=== PATIENT | male | born 1975 | race Caucasian/White ===

== ENCOUNTER 2018-03-05 23:22 | Emergency (ER) | payer SELFPAY ==
[2018-03-06] MEDS ORDERED: KETOROLAC TROMETHAMINE 60 MG/2 ML SDV IM ONE (00:23)
[2018-03-06] MEDS ORDERED: COLCHICINE 0.6 MG TABLET PO ONE (00:23)
--- NOTE | 2018-03-06 00:28 | ER Document Report ---
ED Extremity Problem, Lower - General Chief Complaint: R big toe pain/ R cheek pain Stated Complaint: RIGHT BIG TOE AND RIGHT CHEEK HURTING Time Seen by Provider: 03/06/18 00:23 Mode of Arrival: Ambulatory Information source: Patient Notes: History of present illness-42 years old male woke up 7 days ago with sharp pain over the right big toe, it progressively increased in intensity and become completely erythematous. prior to that he was eating a lot of pork. Denies any previous history of gout. Denies any injury. REVIEW OF SYSTEMS: CONSTITUTIONAL : Denies fever, chills, or sweats. Denies recent illness. EENT: Denies eye, ear, throat, or mouth pain or symptoms. Denies nasal or sinus congestion or discharge. Denies throat, tongue, or mouth swelling or difficulty swallowing. CARDIOVASCULAR: Denies chest pain. Denies palpitations or racing or irregular heart beat. Denies ankle edema. RESPIRATORY: Denies cough, cold, or chest congestion. Denies shortness of breath, difficulty breathing, or wheezing. GASTROINTESTINAL: Denies abdominal pain or distention. Denies nausea, vomiting , or diarrhea. Denies blood in vomitus, stools, or per rectum. Denies black, tarry stools. Denies constipation. GENITOURINARY: Denies difficulty urinating, painful urination, burning, frequency, blood in urine, or discharge. MUSCULOSKELETAL: Denies back or neck pain or stiffness. Denies joint pain or swelling. SKIN: Denies rash, lesions or sores. HEMATOLOGIC : Denies easy bruising or bleeding. LYMPHATIC: Denies swollen, enlarged glands. NEUROLOGICAL: Denies confusion or altered mental status. Denies passing out or loss of consciousness. Denies dizziness or lightheadedness. Denies headache. Denies weakness or paralysis or loss of use of either side. Denies problems with gait or speech. Denies sensory loss, numbness, or tingling. Denies seizures. PSYCHIATRIC: Denies anxiety or stress. Denies depression, suicidal ideation, or homicidal ideation. ALL OTHER SYSTEMS REVIEWED AND NEGATIVE. Dictation was performed using [employer] recognition software PHYSICAL EXAMINATION: GENERAL: Well-appearing, well-nourished and in no acute distress. HEAD: Atraumatic, normocephalic. EYES: Pupils equal round and reactive to light, extraocular movements intact, sclera anicteric, conjunctiva are normal. ENT: Nares patent, oropharynx clear without exudates. Moist mucous membranes. NECK: Normal range of motion, supple without lymphadenopathy LUNGS: Breath sounds clear to auscultation bilaterally and equal. No wheezes rales or rhonchi. HEART: Regular rate and rhythm without murmurs ABDOMEN: Soft, nontender, nondistended abdomen. No guarding, no rebound. No masses appreciated. Musculoskeletal: Right big toe at the metacarpophalangeal joint shows swelling erythema is warm and tender to touch. NEUROLOGICAL: Cranial nerves grossly intact. Normal speech, normal gait. Normal sensory, motor exams PSYCH: Normal mood, normal affect. SKIN: Warm, Dry, normal turgor, no rashes or lesions noted. TRAVEL OUTSIDE OF THE [place] IN LAST 30 DAYS: No - HPI Patient complains to provider of: Pain, Swelling Location: Great Toe Occurred: Last week Where: Home Onset/Duration: Sudden Quality of pain: Sharp Severity: Moderate Pain Level: 3 Context: denies: Barefoot, Burn, Crush, Direct blow, Fell, Laceration, Prolonged pressure on ext, Recent immobilization, Recent surgery, Recent travel , Stubbed, Twisted, Wearing shoes, Other Associated symptoms: denies: Chest pain, Chills, Dizzy, Fainting, Fever, [place] a crack, [place] a pop, Hurts to breath, Painful ambulation, Rapid heart rate, Seizure, Short of breath, Sweaty, Unable to bear weight, Weak, Other Past Medical History - Social History Smoking Status: Current Every Day Smoker Chew tobacco use (# tins/day): No Smoking Education Provided: No Frequency of alcohol use: Rare Drug Abuse: None Lives with: Family Family History: Reviewed & Not Pertinent Patient has suicidal ideation: No Patient has homicidal ideation: No Renal/ Medical History: Denies: Hx Peritoneal Dialysis Review of Systems - Review of Systems Notes: As per history of complain Course - Re-evaluation Re-evalutation: 03/06/18 01:59 Patient patient feeling much better. All lab reports have been reviewed - Laboratory Result Diagrams: 03/06/18 01:00 03/06/18 01:00 Laboratory results interpreted by me: 03/06/18 03/06/18 01:00 01:00 Hgb 13.3 L RDW 14.4 H Chloride 108 H Glucose 114 H Total Bilirubin < 0.1 L Total Protein 5.7 L Albumin 3.4 L Discharge - Discharge Clinical Impression: Gouty arthritis of right great toe Condition: Fair Disposition: HOME, SELF-CARE Instructions: Gout Diet ([facility]), Gout ([facility]) Prescriptions: Colchicine [Colchicine 0.6 mg Tablet] 0.6 mg PO DAILY #30 tablet Indomethacin [Indocin 50 mg Capsule] 50 mg PO TID PRN #30 capsule PRN Reason:
[2018-03-06 01:16] LABS: ABSOLUTE EOSINOPHILS # (AUTO) 0.3 10^3/uL (0.0-0.6); ABSOLUTE LYMPHOCYTES (AUTO) 2.1 10^3/uL (0.5-4.7); ABSOLUTE MONOCYTES (AUTO) 0.5 10^3/uL (0.1-1.4); ABSOLUTE NEUT (AUTO) 3.4 10^3/uL (1.7-8.2); BASOPHILS % (AUTO) 0.7 % (0-2); EOSINOPHILS % (AUTO) 5.2 % (0-6); HEMATOCRIT 39.3 % (37.9-51.0); HEMOGLOBIN 13.3 g/dL (13.5-17.0); LYMPHOCYTES % (AUTO) 33.5 % (13-45); MEAN CORPUSCULAR HEMOGLOBIN 30.5 pg (27.0-33.4); MEAN CORPUSCULAR HGB CONC 33.8 g/dL (32.0-36.0); MEAN CORPUSCULAR VOLUME 90 fl (80-97); MONOCYTES % (AUTO) 7.9 % (3-13); PLATELET COUNT 234 10^3/uL (150-450); RED BLOOD COUNT 4.36 10^6/uL (4.35-5.55); RED CELL DISTRIBUTION WIDTH 14.4 % (11.5-14.0); SEGMENTED NEUTROPHILS % (AUTO) 52.7 % (42-78); TOTAL CELLS COUNTED % (AUTO) 100 %; WHITE BLOOD COUNT 6.4 10^3/uL (4.0-10.5)
[2018-03-06 01:38] LABS: ALANINE AMINOTRANSFERASE 35 U/L (21-72); ALBUMIN 3.4 g/dL (3.5-5.0); ALKALINE PHOSPHATASE 59 U/L (38-126); ANION GAP 8 (5-19); ASPARTATE AMINO TRANSFERASE 24 U/L (17-59); BLOOD UREA NITROGEN 10 mg/dL (7-20); CALCIUM 9.5 mg/dL (8.4-10.2); CARBON DIOXIDE 25 mmol/L (22-30); CHLORIDE 108 mmol/L (98-107); GLUCOSE 114 mg/dL (75-110); POTASSIUM 4.5 mmol/L (3.6-5.0); SODIUM 141.2 mmol/L (137-145); TOTAL PROTEIN 5.7 g/dL (6.3-8.2); URIC ACID 5.5 mg/dL (3.5-8.5)
[2018-03-06 01:40] LABS: BILIRUBIN,TOTAL < 0.1 mg/dL (0.2-1.3)
[2018-03-06 02:07] VITALS: BP 112/59
== END 2018-03-06 02:12 | disposition home or self-care (01) ==
LOC: ER 23:22
DX: M10.471 Other secondary gout, right ankle and foot (principal); M79.674 Pain in right toe(s)
CPT/HCPCS: 99283; 96372; 36415; 84550; 85025; 80053; J1885

== ENCOUNTER 2018-09-10 00:07 | Emergency (ER) | payer SELFPAY ==
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
[2018-09-10 01:46] LABS: ABSOLUTE BASOPHILS # (AUTO) 0.1 10^3/uL (0.0-0.2); ABSOLUTE EOSINOPHILS # (AUTO) 0.3 10^3/uL (0.0-0.6); ABSOLUTE LYMPHOCYTES (AUTO) 1.8 10^3/uL (0.5-4.7); ABSOLUTE MONOCYTES (AUTO) 0.3 10^3/uL (0.1-1.4); ABSOLUTE NEUT (AUTO) 3.1 10^3/uL (1.7-8.2); BASOPHILS % (AUTO) 1.1 % (0-2); EOSINOPHILS % (AUTO) 6.1 % (0-6); HEMATOCRIT 41.1 % (37.9-51.0); HEMOGLOBIN 13.8 g/dL (13.5-17.0); MEAN CORPUSCULAR HEMOGLOBIN 29.4 pg (27.0-33.4); MEAN CORPUSCULAR HGB CONC 33.6 g/dL (32.0-36.0); MEAN CORPUSCULAR VOLUME 87 fl (80-97); MONOCYTES % (AUTO) 5.1 % (3-13); PLATELET COUNT 335 10^3/uL (150-450); RED CELL DISTRIBUTION WIDTH 18.6 % (11.5-14.0); SEGMENTED NEUTROPHILS % (AUTO) 54.7 % (42-78); TOTAL CELLS COUNTED % (AUTO) 100 %; WHITE BLOOD COUNT 5.6 10^3/uL (4.0-10.5)
[2018-09-10 02:01] LABS: ALANINE AMINOTRANSFERASE 30 U/L (21-72); ALBUMIN 4.3 g/dL (3.5-5.0); ALCOHOL 244 mg/dL (NONE DETECTED); ALKALINE PHOSPHATASE 71 U/L (38-126); ANION GAP 11 (5-19); ASPARTATE AMINO TRANSFERASE 38 U/L (17-59); BILIRUBIN,DIRECT 0.2 mg/dL (0.0-0.4); BILIRUBIN,TOTAL 0.5 mg/dL (0.2-1.3); BLOOD UREA NITROGEN 6 mg/dL (7-20); CARBON DIOXIDE 30 mmol/L (22-30); CHLORIDE 99 mmol/L (98-107); GLUCOSE 81 mg/dL (75-110); POTASSIUM 4.4 mmol/L (3.6-5.0); TOTAL PROTEIN 7.1 g/dL (6.3-8.2)
[2018-09-10 02:06] LABS: URINE AMPHETAMINES SCREEN NEGATIVE; URINE BARBITURATES SCREEN NEGATIVE; URINE BENZODIAZEPINES SCREEN NEGATIVE; URINE COCAINE SCREEN NEGATIVE; URINE MARIJUANA (THC) SCREEN UNCONFIRMED POSITIVE; URINE METHADONE SCREEN NEGATIVE; URINE PHENCYCLIDINE SCREEN NEGATIVE
[2018-09-10 03:01] LABS: APPEARANCE,URINE CLEAR; BILIRUBIN,URINE NEGATIVE (NEGATIVE); COLOR,URINE COLORLESS; GLUCOSE, URINE NEGATIVE (NEGATIVE); KETONES,URINE NEGATIVE (NEGATIVE); LEUKOCYTE ESTERASE,URINE NEGATIVE (NEGATIVE); NITRITE,URINE NEGATIVE (NEGATIVE); PROTEIN,URINE NEGATIVE (NEGATIVE); URINE SPECIFIC GRAVITY 1.004; UROBILINOGEN,URINE NEGATIVE mg/dL (<2.0)
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
== END 2018-09-10 05:00 | disposition home or self-care (01) ==
LOC: ER 00:07
DX: S39.91XA Unspecified injury of abdomen, initial encounter (principal); R10.32 Left lower quadrant pain; Y04.2XXA Assault by strike against or bumped into by another person, initial encounter; R51 Headache; R07.1 Chest pain on breathing; F12.10 Cannabis abuse, uncomplicated; F17.200 Nicotine dependence, unspecified, uncomplicated; Z91.013 Allergy to seafood
CPT/HCPCS: 36415; 70450; 71250; 74177; 80053; 80307; 81001; 85025; 99284

== ENCOUNTER 2018-10-04 23:30 | Emergency (ER) | payer SELFPAY ==
[2018-10-04] MEDS ORDERED: ONDANSETRON HCL INJ/PF 4 MG/2 ML SDV IV ONE (23:46)
[2018-10-04] MEDS ORDERED: DIPH/PERTUSS(ACELL)/TETANUS VAC/PF 0.5 ML SYR (>=10YO) IM ONE (23:47)
[2018-10-04] MEDS ORDERED: LIDOCAINE 1%/EPINEPHRINE INJ 20 ML VIAL INJ ONE (23:47)
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
--- NOTE | 2018-10-05 00:57 | RADIOLOGY REPORT (SQ) ---
EXAM DESCRIPTION: XR FOOT 3 OR MORE VIEWS, XR ANKLE 3 OR MORE VIEWS, XR KNEE 4 OR MORE VIEWS COMPLETED DATE/TME: 10/04/2018 23:46 CLINICAL HISTORY: 42 years, Male, fall, pain COMPARISON: None. NUMBER OF VIEWS: Three views of the left ankle and three views of the left foot four views of the right knee TECHNIQUE: Views of the left ankle and three views of the left foot, four views of the right knee LIMITATIONS: None. FINDINGS: There is no acute fracture or dislocation in either the foot or ankle. The ankle mortise is intact. No large soft tissue swelling. No radiopaque foreign body. There is no acute fracture or dislocation involving the knee. No large soft tissue swelling. There is mild joint space narrowing with subchondral sclerosis involving the medial and lateral compartments. IMPRESSION: No acute fracture or dislocation involving the left ankle or foot. No acute fracture or dislocation involving the right knee 2010 [employer]- All Rights Reserved
[2018-10-05] MEDS ORDERED: METOCLOPRAMIDE HCL INJ/PF 10 MG/2 ML SDV IV ONE (01:12)
[2018-10-05] MEDS ORDERED: KETOROLAC TROMETHAMINE INJ/PF 30 MG/1 ML SDV IV ONE (01:12)
[2018-10-05 01:38] VITALS: BP 119/76
== END 2018-10-05 02:04 | disposition home or self-care (01) ==
LOC: ER 23:30
DX: S01.01XA Laceration without foreign body of scalp, initial encounter (principal); M79.672 Pain in left foot; M25.572 Pain in left ankle and joints of left foot; M25.561 Pain in right knee; W19.XXXA Unspecified fall, initial encounter; F10.129 Alcohol abuse with intoxication, unspecified
CPT/HCPCS: 99284; 90471; 96374; 82962; 73610; 73630; 73564; 70450; 72125; 90715; 12002; J3490; J1885; J2765; J2405

== ENCOUNTER 2018-10-07 19:46 | Emergency (ER) | payer SELFPAY ==
[2018-10-07] MEDS ORDERED: DIPHENHYDRAMINE HCL 25 MG CAPSULE PO ONE (20:07)
[2018-10-07] MEDS ORDERED: PROCHLORPERAZINE MALEATE 10 MG TABLET PO ONE (20:07)
[2018-10-07] MEDS ORDERED: ACETAMINOPHEN 325 MG TABLET PO ONE (20:08)
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
--- NOTE | 2018-10-07 21:06 | ER Document Report ---
ED General - General Chief Complaint: Dizziness Stated Complaint: HEAD PAIN Time Seen by Provider: 10/07/18 20:03 Notes: Patient is a 42-year-old male who presents emergency department with headache. He states he is unable to focus and when he attempts to watch TV his headache gets worse. He also says he feels dizzy sometimes. On Sunday he had slipped and hit his head, and had a laceration on his head, which required joselito. He states he has not been able to sleep for the past 2 days and has only gotten 4 hours of sleep. He has been taking Aleve, Tylenol, and ibuprofen sporadically with no relief. Denies weakness, numbness, tingling, or altered level of consciousness. TRAVEL OUTSIDE OF THE [place] IN LAST 30 DAYS: No - Related Data Allergies/Adverse Reactions: iodine Allergy (Verified 09/10/18 00:13) shellfish derived Allergy (Verified 10/07/18 20:04) Past Medical History - Social History Smoking Status: Current Every Day Smoker Chew tobacco use (# tins/day): No Frequency of alcohol use: Occasional Drug Abuse: None Family History: Reviewed & Not Pertinent Patient has suicidal ideation: No Patient has homicidal ideation: No Renal/ Medical History: Denies: Hx Peritoneal Dialysis Psychiatric Medical History: Reports: Hx Depression - and anxiety - Immunizations Immunizations up to date: Yes Hx Diphtheria, Pertussis, Tetanus Vaccination: Yes Review of Systems - Review of Systems Notes: REVIEW OF SYSTEMS: CONSTITUTIONAL : Denies recent illness. Denies recent unintentional weight loss. Denies fever, chills, or sweats. EENT: Denies eye, ear, throat, or mouth pain, discharge, or symptoms. Denies nasal or sinus congestion. CARDIOVASCULAR: Denies chest pain. RESPIRATORY: Denies shortness of breath, cough, congestion, difficulty breathing , or wheezing. GASTROINTESTINAL: Denies nausea, vomiting, and diarrhea. Denies abdominal pain. Denies constipation. GENITOURINARY: Denies difficulty urinating, burning, blood in urine, urgency or frequency. MUSCULOSKELETAL: Denies neck and back pain. Denies joint pain or swelling. SKIN: Denies rash, itchiness, or lesions HEMATOLOGIC : Denies easy bruising or bleeding. LYMPHATIC: Denies swollen, painful, enlarged glands. NEUROLOGICAL: See HPI PSYCHIATRIC: Denies stress, anxiety, alteration in sleep patterns, or depression. All other systems reviewed and negative. Physical Exam - Vital signs Vitals: Temp Pulse Resp BP Pulse Ox 98.2 F 71 16 166/92 H 99 10/07/18 20:00 10/07/18 20:00 10/07/18 20:00 10/07/18 20:00 10/07/18 20:00 - Notes Notes: PHYSICAL EXAMINATION: GENERAL: Well-appearing, well-nourished and in no acute distress. HEAD: Joselito noted to scalp from previous visit, normocephalic. EYES: Pupils equal round and reactive to light, extraocular movements intact, sclera anicteric, conjunctiva are normal. ENT: nares patent, oropharynx clear without exudates. Moist mucous membranes. NECK: Normal range of motion, supple without lymphadenopathy LUNGS: Breath sounds clear to auscultation bilaterally and equal. No wheezes rales or rhonchi. HEART: Regular rate and rhythm without murmurs ABDOMEN: Soft, nontender, normoactive bowel sounds. No guarding, no rebound. No masses appreciated. EXTREMITIES: Normal range of motion, no pitting or edema. No cyanosis. NEUROLOGICAL: No focal neurological deficits. Moves all extremities spontaneously and on command. PSYCH: Normal mood, normal affect. SKIN: Warm, Dry, normal turgor, no rashes or lesions noted. Course - Re-evaluation Re-evalutation: 10/07/18 21:06 Patient's history and description of his headache is suggestive of a postconcussive headache. He has been given a headache cocktail by the previous provider. Will evaluate patient for signs of relief of his headache. I do not suspect the patient has a subarachnoid hemorrhage, subdural hematoma, or any life-threatening injuries at this time. 10/07/18 22:13 Patient states that he still feels the headache. Due to the nature of his headache being a post concussive headache. Has no neurological deficits. He will be sent home on Motrin 600 mg and Tylenol 1000 mg every 6 hours to help with pain control. He agrees to this plan and is requesting a work note. Strict follow-up instructions were given to the patient. He verbalized understanding. He is stable for discharge. - Vital Signs Vital signs: Temp Pulse Resp BP Pulse Ox 99.0 F 55 L 16 144/83 H 97 10/07/18 22:30 11/12/18 22:30 10/07/18 22:30 10/07/18 22:30 10/07/18 22:30 Discharge - Discharge Clinical Impression: Dizziness, Headache Condition: Stable Disposition: HOME, SELF-CARE Additional Instructions: You have been seen in the emergency department for dizziness and a headache. The most likely cause of your dizziness and headaches are from your injury from last Sunday. You may continue to have headaches for the next few weeks. Please take Tylenol 1000 mg and Motrin 600 mg every 6 hours for your headache. Get plenty of rest and plenty of fluid. Please follow-up on Sunday to have your joselito taken out. Try not to do any activities that make your headache worse. If TV gives you a headache, do not watch TV. Post-Concussion Syndrome Post-concussion syndrome often follows a mild head injury. Dizziness, mild nausea, mild headache, trouble concentrating, and a general sense of "not being right" may persist for a week or two. This is a frequent complication of concussion. However, if the symptoms worsen, or new symptoms develop, you should be re-examined by the physician. There is no specific cure for post-concussion syndrome. You can take mild pain medication such as ibuprofen or acetaminophen. While you should not drive if you are dizzy, you can get back to your regular activities as quickly as the symptoms will allow. And while vigorous exercise may worsen the headache, mild physical activity often is helpful. Sitting and thinking about your symptoms will worsen them. If difficulties continue, you may need referral for special therapy to help you regain full mental function. Call the physician if you are worsening, or if symptoms are still present in one week. Report any new symptoms immediately. Forms: Return to Work
[2018-10-07 22:34] VITALS: BP 144/83
== END 2018-10-07 22:34 | disposition home or self-care (01) ==
LOC: ER 19:46
DX: R42 Dizziness and giddiness (principal); R51 Headache; S01.91XD Laceration without foreign body of unspecified part of head, subsequent encounter; W01.0XXD Fall on same level from slipping, tripping and stumbling without subsequent striking against object, subsequent encounter; F17.200 Nicotine dependence, unspecified, uncomplicated
CPT/HCPCS: 99283; S0183

== ENCOUNTER 2020-07-04 19:35 | Emergency (ER) | payer SELFPAY ==
[2020-07-04 21:41] VITALS: BP 136/78
--- NOTE | 2020-07-04 21:47 | ER Document Report ---
HPI - HPI Patient complains to provider of: Dental Pain Time Seen by Provider: 07/04/20 21:38 Pain Level: Denies Context: 44-year-old male denies any previous medical problems presents to the emergency room complaining of bilateral lower posterior dental pain for the past 2 weeks. Has not been taking medications for symptoms. Currently without a dentist. Denies any recent trauma or injury. He states he knows his molars are bad. Eating and drinking normally. Denies any fevers. Associated Symptoms: None Exacerbated by: Food Relieved by: Denies Similar symptoms previously: No Recently seen / treated by doctor: No - ROS Systems Reviewed and Negative: Yes All other systems reviewed and negative - CONSTITUTIONAL Constitutional: DENIES: Fever, Chills - EENT Notes: Dental pain Past Medical History - General Information source: Patient - Social History Smoking Status: Current Every Day Smoker Frequency of alcohol use: None Drug Abuse: Marijuana Family History: Reviewed & Not Pertinent Patient has homicidal ideation: No Renal/ Medical History: Denies: Hx Peritoneal Dialysis Psychiatric Medical History: Reports: Hx Depression - and anxiety - Immunizations Immunizations up to date: Yes Hx Diphtheria, Pertussis, Tetanus Vaccination: Yes Vertical Provider Document - CONSTITUTIONAL Agree With Documented VS: Yes Exam Limitations: No Limitations General Appearance: Mild Distress - INFECTION CONTROL TRAVEL OUTSIDE OF THE [place] IN LAST 30 DAYS: No - HEENT HEENT: Atraumatic, Normocephalic. negative: Pharyngeal Tenderness, Pharyngeal Erythema, Tympanic Membrane Red Notes: Dentures to the upper portion of his mouth. Widespread dental decay and the lower portion of the mouth. Posterior molars with nonfluctuant abscesses noted. There is gum swelling and erythema around the bilateral lower posterior molars. Right posterior molar is fractured. Tender to palpation. - NECK Neck: Normal Inspection. negative: Lymphadenopathy-Left, Lymphadenopathy-Right - RESPIRATORY Respiratory: Breath Sounds Normal, No Respiratory Distress, Chest Non-Tender - CARDIOVASCULAR Cardiovascular: Regular Rate, Regular Rhythm, No Murmur - MUSCULOSKELETAL/EXTREMETIES Musculoskeletal/Extremeties: FROM - NEURO Level of Consciousness: Awake, Alert, Appropriate Motor/Sensory: No Motor Deficit, No Sensory Deficit - DERM Integumentary: Warm, Dry, No Rash Course - Re-evaluation Re-evalutation: 07/04/20 21:49 Patient was counseled on need to take medications as prescribed. Outpatient follow-up with a dentist as soon as possible. Soft diet. Patient was given strict return to the emergency room guidelines. Return for any new or worsening symptoms. All questions were answered. Patient verbalized understanding and agrees with plan of care. - Vital Signs Vital signs: Temp Pulse Resp BP Pulse Ox 98.9 F 72 17 136/78 H 97 07/04/20 21:41 07/04/20 21:41 07/04/20 21:41 07/04/20 21:41 07/04/20 21:41 Discharge - Discharge Clinical Impression: Dental abscess, Pain, dental Condition: Stable Disposition: HOME, SELF-CARE Instructions: [facility], Abscess ([facility]), Penicillin V K ([facility]), Toothache ([facility]) Additional Instructions: Medications as prescribed. Follow-up with a dentist as it is possible. Return to the emergency room for any new or worsening symptoms. Prescriptions: Ketorolac Tromethamine [Toradol 10 mg Tablet] 10 mg PO Q6HP PRN #12 tablet PRN Reason: Penicillin V Potassium [Penicillin Vk 500 mg Tablet] 500 mg PO QID #40 tablet Referrals: [facility] [Provider Group] - Follow up as needed
== END 2020-07-04 21:49 | disposition home or self-care (01) ==
LOC: ER 19:35
DX: K04.7 Periapical abscess without sinus (principal); K02.9 Dental caries, unspecified; K08.89 Other specified disorders of teeth and supporting structures; F17.200 Nicotine dependence, unspecified, uncomplicated; F12.10 Cannabis abuse, uncomplicated; Z97.2 Presence of dental prosthetic device (complete) (partial)
CPT/HCPCS: 99282